=== PATIENT | male | born 1965 | race Caucasian/White ===

== ENCOUNTER 2019-04-21 12:10 | Emergency (ER) | payer OTHER ==
[~2019-04-21] VITALS: Ht 182.9 cm; Wt 77.1 kg
[2019-04-21] MEDS ORDERED: Augmentin 875-1 EACH PO (12:49)
== END 2019-04-21 13:02 | disposition home or self-care (01) ==
LOC: ER 12:10
DX: S61.451A Open bite of right hand, initial encounter (principal); W54.0XXA Bitten by dog, initial encounter
CPT/HCPCS: 99283